=== PATIENT | male | born 1960 | race Caucasian/White ===

== ENCOUNTER 2019-07-20 11:09 | Emergency (ER) | payer BC ==
--- NOTE | 2019-07-20 11:43 | EKG REPORT ---
SEVERITY:- OTHERWISE NORMAL ECG - SINUS RHYTHM PVC : Confirmed by: Porter Sharp MD 20-Jul-2019 11:41:54
--- NOTE | 2019-07-20 12:21 | RADIOLOGY REPORT (SQ) ---
EXAM DESCRIPTION: CHEST SINGLE VIEW IMAGES COMPLETED DATE/TIME: 07/20/2019 12:10 pm REASON FOR STUDY: cp COMPARISON: None. EXAM PARAMETERS: NUMBER OF VIEWS: One view. TECHNIQUE: Single frontal radiographic view of the chest acquired. RADIATION DOSE: NA LIMITATIONS: None. FINDINGS: LUNGS AND PLEURA: No opacities, masses or pneumothorax. No pleural effusion. MEDIASTINUM AND HILAR STRUCTURES: No masses. Contour normal. HEART AND VASCULAR STRUCTURES: Heart normal in size. Normal vasculature. BONES: No acute findings. HARDWARE: None in the chest. OTHER: No other significant finding. IMPRESSION: NO ACUTE RADIOGRAPHIC FINDING IN THE CHEST. TECHNICAL DOCUMENTATION: JOB ID: [id number] 2010 [employer]- All Rights Reserved Reading location - IP/workstation name: [email or web address]
[2019-07-20 12:24] LABS: A TYPE INFLUENZA AG NEGATIVE (NEGATIVE); B INFLUENZA AG NEGATIVE (NEGATIVE)
--- NOTE | 2019-07-20 13:41 | ER Document Report ---
ED General - Related Data Home Medications: lisinopril <NORMA FLANNERY - Last Filed: 07/20/19 14:38> <ANTONY BLUE - Last Filed: 07/20/19 16:29> - General Chief Complaint: Shortness Of Breath Stated Complaint: SORE THROAT Time Seen by Provider: 07/20/19 11:32 - HPI Notes: Chief complaint: Sore throat, chest tightness, myalgias and altered sense of taste HPI: 59-year-old male treated by physician in [facility] for mild hypertension taking 20 mg of lisinopril daily presenting with 3 to 4-day history of symptoms as noted above. He denies known covert exposure. He has been doing some traveling within the [facility]. He has not previously been tested for COVID. Patient denies any known history of cardiac disease. He is a non-smoker. No history of hyperlipidemia. He is not diabetic. Family history is, however positive for CAD. (NORMA FLANNERY) - Related Data Allergies/Adverse Reactions: No Known Allergies Allergy (Unverified 07/20/19 11:51) Past Medical History - General Information source: Patient - Social History Smoking Status: Never Smoker Chew tobacco use (# tins/day): Yes Frequency of alcohol use: Social Drug Abuse: None Patient has homicidal ideation: No - Past Medical History Cardiac Medical History: Reports: Hx Hypertension <NORMA FLANNERY - Last Filed: 07/20/19 14:38> - Social History Family History: Reviewed & Not Pertinent <ANTONY BLUE - Last Filed: 07/20/19 16:29> Review of Systems <NORMA FLANNERY - Last Filed: 07/20/19 14:38> - Review of Systems Notes: Constitutional: General malaise. Negative for fever. HENT: As per HPI. Eyes: Negative for visual changes. Cardiovascular: As per HPI. Respiratory: Mild dyspnea on exertion. Gastrointestinal: Negative for abdominal pain, vomiting or diarrhea. Genitourinary: Negative for dysuria. Musculoskeletal: As per HPI. Skin: Negative for rash. Neurological: Negative for headaches, weakness or numbness. 10 point ROS negative except as marked above and in HPI. (NORMA FLANNERY) Physical Exam <NORMA FLANNERY - Last Filed: 07/20/19 14:38> - Vital signs Vitals: Temp Pulse Resp BP Pulse Ox 98.1 F 91 16 153/95 H 98 07/20/19 11:21 07/20/19 11:21 07/20/19 11:21 07/20/19 11:21 07/20/19 11:21 - Notes Notes: Remote Exam Using Telemedicine System GENERAL: Well-developed well-nourished appearing in no acute distress. SKIN: no rashes. HEAD: Normocephalic atraumatic. EYES: PERRL. EOMI. Conjunctivae and sclerae clear. NOSE: CLEAR. MOUTH: Moist mucosa. Good dentition. No stridor or edema. No drooling. NECK: Full ROM. No visible masses or thyromegaly. No JVD. BACK: Symmetrical. CHEST: Respirations unlabored. Expands symmetrical. ABDOMEN: Non-distended. GENITALIA: Deferred. EXTREMITIES: No edema. NEUROLOGICAL: GCS 15. Alert and oriented x3. Normal gait. Fluent speech. Cranial nerves II through XII intact. Motor and cerebellar normal. PSYCHIATRIC: Appropriate affect. (NORMA FLANNERY) Course - Laboratory Result Diagrams: 07/20/19 13:50 07/20/19 13:50 - Transfer of Care Care transferred to following provider: Dr. Blue <NORMA FLANNERY - Last Filed: 07/20/19 14:38> - Laboratory Result Diagrams: 07/20/19 13:50 07/20/19 13:50 - Diagnostic Test Radiology reviewed: Image reviewed, Reports reviewed <ANTONY BLUE - Last Filed: 07/20/19 16:29> - Re-evaluation Re-evalutation: 07/20/19 14:39 Current findings are most consistent with acute viral syndrome. Rapid strep test and influenza screens were negative. Chest x-ray shows no infiltrates. Normal oxygenation. EKG showed no acute changes. COVID screen has been req uested for this patient. Troponin is pending at this time and provided this is negative I think patient can be safely discharged home. (NORMA FLANNERY) 07/20/19 16:24 Patient showing no signs of distress at this time. 07/20/19 16:25 Patient has had a COVID-19 study done which will hopefully report back within the next 3 days. (ANTONY BLUE) - Vital Signs Vital signs: Temp Pulse Resp BP Pulse Ox 98.1 F 91 16 153/95 H 98 07/20/19 11:54 07/20/19 11:21 07/20/19 11:21 07/20/19 11:21 07/20/19 11:21 07/20/19 16:25 Vital signs are stable with a blood pressure 153/95 pulse ox 98% afebrile pulse 91 respiratory rate 16. (ANTONY BLUE) - Laboratory Laboratory results interpreted by me: 07/20/19 16:27 Troponin level was 0.012 showing no elevation. (ANTONY BLUE) - Diagnostic Test Radiology results interpreted by me: 07/20/19 16:25 Chest x-ray shows no acute process. (ANTONY BLUE) - EKG Interpretation by Me Additional EKG results interpreted by me: 07/20/19 13:40 Twelve-lead EKG from 1128 hrs. reviewed by me contemporaneously demonstrated heart rate of 85 with normal sinus rhythm. Indication for tracing was symptom of chest tightness. Single PVC is present on the tracing. Intervals are normal. No acute ST/T wave changes are present. There is no prior tracing for comparison. (NORMA FLANNERY) 07/20/19 16:26 Twelve-lead EKG shows normal sinus rhythm occasional PVCs no acute process. (ANTONY BLUE) Discharge <NORMA FLANNERY - Last Filed: 07/20/19 14:38> <ANTONY BLUE - Last Filed: 07/20/19 16:29> - Discharge Clinical Impression: Acute viral syndrome Condition: Stable Disposition: HOME, SELF-CARE Instructions: Viral Syndrome (REPLACED BY [facility]) Additional Instructions: Viral Syndrome The physician has diagnosed a viral infection. Viruses not only cause "colds," but can cause many different symptoms including generalized aching, fever, headache, cough, diarrhea, nausea, vomiting, and fatigue. The treatment, for the most part, is simply relief of symptoms. This means that antibiotics are usually not given. Rest, fluids, pain medications and, occasionally, medication for the specific symptoms that are most bothersome will be prescribed. Use good handwashing to avoid passing the virus to others. Shared toys should be cleaned with disinfectant. Clean the toilets, sinks, and counter surfaces in bathrooms. Launder clothing in hot water. Contact the physician if you develop any new or unusual symptoms such as severe headache, stiff neck, high fever, chest pain, productive cough, or shortness of breath. You should be rechecked if you don't see marked improvement within seven to 10 days. You were tested for COVID-19 today while in the department. That test results should be reported out in the next 3 days. Depending on the result you will get further instructions. Meanwhile you need to be quarantined for the next 14 days to be certain that you are not exposing yourself to other people.
[2019-07-20 14:22] LABS: ABSOLUTE LYMPHOCYTES (AUTO) 2.3 10^3/uL (0.5-4.7); ABSOLUTE MONOCYTES (AUTO) 0.5 10^3/uL (0.1-1.4); ABSOLUTE NEUT (AUTO) 3.9 10^3/uL (1.7-8.2); BASOPHILS % (AUTO) 0.2 % (0-2); EOSINOPHILS % (AUTO) 0.6 % (0-6); HEMATOCRIT 43.6 % (37.9-51.0); HEMOGLOBIN 15.4 g/dL (13.5-17.0); LYMPHOCYTES % (AUTO) 34.3 % (13-45); MEAN CORPUSCULAR HEMOGLOBIN 30.1 pg (27.0-33.4); MEAN CORPUSCULAR HGB CONC 35.4 g/dL (32.0-36.0); MEAN CORPUSCULAR VOLUME 85 fl (80-97); MONOCYTES % (AUTO) 7.2 % (3-13); PLATELET COUNT 193 10^3/uL (150-450); RED BLOOD COUNT 5.13 10^6/uL (4.35-5.55); RED CELL DISTRIBUTION WIDTH 13.6 % (11.5-14.0); SEGMENTED NEUTROPHILS % (AUTO) 57.7 % (42-78); TOTAL CELLS COUNTED % (AUTO) 100 %; WHITE BLOOD COUNT 6.8 10^3/uL (4.0-10.5)
[2019-07-20 14:44] LABS: ALBUMIN 4.3 g/dL (3.5-5.0); ALKALINE PHOSPHATASE 83 U/L (38-126); ANION GAP 8 (5-19); ASPARTATE AMINO TRANSFERASE 24 U/L (17-59); BILIRUBIN,TOTAL 0.6 mg/dL (0.2-1.3); BLOOD UREA NITROGEN 11 mg/dL (7-20); CALCIUM 9.2 mg/dL (8.4-10.2); CARBON DIOXIDE 28 mmol/L (22-30); CHLORIDE 102 mmol/L (98-107); GLUCOSE 87 mg/dL (75-110); POTASSIUM 4.3 mmol/L (3.6-5.0); TOTAL PROTEIN 7.5 g/dL (6.3-8.2)
[2019-07-20 16:38] VITALS: BP 148/83
== END 2019-07-20 16:56 | disposition home or self-care (01) ==
LOC: ER 11:09
DX: B34.9 Viral infection, unspecified (principal); R06.02 Shortness of breath; J02.9 Acute pharyngitis, unspecified; R07.9 Chest pain, unspecified; M79.10 Myalgia, unspecified site; R41.82 Altered mental status, unspecified; R53.81 Other malaise; R06.00 Dyspnea, unspecified; I10 Essential (primary) hypertension; Z79.899 Other long term (current) drug therapy; I25.10 Atherosclerotic heart disease of native coronary artery without angina pectoris; Z20.828 Contact with and (suspected) exposure to other viral communicable diseases
CPT/HCPCS: 93005; 99283; 36415; 87070; 87880; 85025; 87635; 80053; 84484; 87804; 71045; 93010; C9803

== ENCOUNTER 2019-11-09 07:55 | Emergency (ER) | payer BC ==
--- NOTE | 2019-11-09 11:26 | ER Document Report ---
ED Medical Screen (RME) - General Chief Complaint: Chest Pain Stated Complaint: CHEST PAIN Time Seen by Provider: 11/09/19 11:20 Mode of Arrival: Ambulatory Information source: Patient Notes: 59-year-old male presented to ED for chest pain that started last night. He states is been off and on since last night. He states was worse this morning. He states he does have some numbness and tingling down the left arm. He states is actually feeling the little better than he was earlier today but it is still having some numbness and tingling down the hand. He states he is not leaving until he checks that was going on. He states he does chew tobacco does not drink or use any drugs and does have a history of high blood pressure but does not think he has any history of cholesterol. He is alert oriented respirations regular nonlabored speaking in full sentences. I have greeted and performed a rapid initial assessment of this patient. A comprehensive ED assessment and evaluation of the patient, analysis of test results and completion of medical decision making process will be conducted by an additional ED providers. - Related Data Allergies/Adverse Reactions: No Known Allergies Allergy (Unverified 07/20/19 11:51) Home Medications: Lisinopril Past Medical History - Social History Chew tobacco use (# tins/day): Yes Drug Abuse: None - Past Medical History Cardiac Medical History: Reports: Hx Hypertension Physical Exam - Vital signs Vitals: Temp Pulse Resp BP Pulse Ox 98.5 F 106 H 18 164/93 H 98 11/09/19 08:20 11/09/19 08:20 11/09/19 08:20 11/09/19 08:20 11/09/19 08:20 Course - Vital Signs Vital signs: Temp Pulse Resp BP Pulse Ox 98.5 F 106 H 18 164/93 H 98 11/09/19 08:20 11/09/19 08:20 11/09/19 08:20 11/09/19 08:20 11/09/19 08:20
--- NOTE | 2019-11-09 11:56 | ER Document Report ---
ED General - General Chief Complaint: Chest Pain Stated Complaint: CHEST PAIN Time Seen by Provider: 11/09/19 11:20 Mode of Arrival: Ambulatory - HPI Notes: Chief complaint: Anxiety, chest tightness, concern about blood pressure History of present illness: 59-year-old male followed by primary care [facility] presenting for evaluation of anxiety, chest tightness and concerns about blood pressure. 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 He states he is under a great deal of stress at work at this time. Patient has been out of his lisinopril 20 mg which he usually takes for blood pressure for the past 2 weeks. He has been having some tachycardia/palpitations. Had some vague tightness in his chest last night with some radiation to left shoulder. This lasted for under 5 minutes. There was no associated shortness of breath, diaphoresis or nausea/vomiting. Patient notes that he had a negative treadmill test about 2-1/2 years ago in [facility]. Patient denies any known personal or family history of thromboembolic disease. History of hypertension as noted. Marginal hyperlipidemia. No diabetes. Non-smoker. Multiple family members with CAD. HEART Score: HISTORY 1 ECG 1 AGE 2 RISK FACTORS 2 TROPONIN 0 TOTAL: If HEART score is = 3 AND both tronponin measurments are normal, the 30 day risk of a major adverse cardiac event (all-cause mortality, myocardia infarction or need for coronary revscularization) is < 1% (Sensitivity 100%, NPV 100%). PERC SCORE H no hormone administration A Age>50 D DVT/PE previously C Coughing up blood L Leg swelling unilaterally O O2 sat <95% T Tachycardia S Surgery/Trauma recently - Related Data Allergies/Adverse Reactions: No Known Allergies Allergy (Unverified 07/20/19 11:51) Home Medications: Lisinopril Past Medical History - General Information source: Patient - Social History Smoking Status: Unknown if Ever Smoked Chew tobacco use (# tins/day): Yes Drug Abuse: None Family History: Reviewed & Not Pertinent - Past Medical History Cardiac Medical History: Reports: Hx Hypertension Denies: Hx Coronary Artery Disease, Hx DVT, Hx Pulmonary Embolism Past Surgical History: Reports: Hx Orthopedic Surgery Review of Systems - Review of Systems Notes: Constitutional: Negative for fever. HENT: Negative for sore throat. Eyes: Negative for visual changes. Cardiovascular: As per HPI. Respiratory: Negative for shortness of breath. Gastrointestinal: Negative for abdominal pain, vomiting or diarrhea. Genitourinary: Negative for dysuria. Musculoskeletal: Negative for back pain. Skin: Negative for rash. Neurological: Negative for headaches, weakness or numbness. 10 point ROS negative except as marked above and in HPI. Physical Exam - Vital signs Vitals: Temp Pulse Resp BP Pulse Ox 98.5 F 106 H 18 164/93 H 98 11/09/19 08:20 11/09/19 08:20 11/09/19 08:20 11/09/19 08:20 11/09/19 08:20 - Notes Notes: GENERAL: Well-developed well-nourished male approximately stated age appearing mildly anxious. SKIN: Slightly flushed. Good turgor no rashes. HEAD: Normocephalic atraumatic. EYES: PERRLA. EOMI. Conjunctivae and sclerae clear. EARS: CANALS AND TMS CLEAR. NOSE: CLEAR. MOUTH: Moist mucosa. Good dentition. No stridor or edema. No drooling. NECK: Supple. No masses or thyromegaly. No adenopathy. Carotids 2+ without bruits. No JVD. BACK: Symmetrical without tenderness. CHEST: Respirations unlabored. Breath sounds clear and symmetrical. HEART: Tachycardic. Regular rhythm. No murmur gallop or rub. ABDOMEN: Soft nontender without masses, organomegaly or rebound. Bowel sounds normally active. No bruits. GENITALIA: Deferred. EXTREMITIES: No edema. No calf tenderness. Cap refill less than 1.5 seconds. Dorsalis pedis and posterior tibial pulses 3+ and symmetrical. NEUROLOGICAL: GCS 15. Alert and oriented x3. Normal gait. Fluent speech. Cranial nerves II through XII intact. Sensorimotor and cerebellar normal. Normal tone. PSYCHIATRIC: Slightly anxious affect. Course - Re-evaluation Re-evalutation: 11/09/19 16:44 Patient is remained asymptomatic here. I gave him lisinopril 20 mg orally his blood pressure normalized. His EKG did not show any acute ST changes. His first troponin was normal. His 3-hour repeat troponin is pending at this time. I discussed case with the on-call talent development manager Dr. Anderson. He is going to arrange to see this man within the next 24 hours on outpatient basis for repeat treadmill testing. Even though his heart score is 4 we both feel comfortable with office follow-up because he has had a negative treadmill test within the last 2 to 3 years. This is all, of course, dependent upon the second troponin being normal. This will be reviewed prior to discharge. I will give the patient a work note for the next 3 days and write a prescription so he can get back on his lisinopril 20 mg daily. Also recommend 81 mg aspirin daily for prophylaxis. Findings, clinical impression and plan of treatment have been discussed with patient/family. Understanding of current findings and recommendations has been acknowledged by them and there is agreement regarding disposition and follow-up. - Vital Signs Vital signs: Temp Pulse Resp BP Pulse Ox 98.7 F 106 H 15 123/85 98 11/09/19 14:01 11/09/19 08:20 11/09/19 14:01 11/09/19 14:01 11/09/19 14:01 - Laboratory Result Diagrams: 11/09/19 11:40 11/09/19 11:40 Laboratory results interpreted by me: 11/09/19 11:40 Glucose 198 H - EKG Interpretation by Me Additional EKG results interpreted by me: 11/09/19 12:05 Twelve-lead EKG reviewed by me contemporaneously: 0803 hrs. Indication for study: Chest pain Rhythm: Sinus tachycardia Rate: 108 Intervals: Normal QRS axis: +[address]/T wave changes: None Comparison with prior tracing: None present Interpretation: Sinus tachycardia Discharge - Discharge Clinical Impression: Essential hypertension, Noncompliance Chest pain Qualifiers: Chest pain type: unspecified Qualified Code(s): R07.9 - Chest pain, unspecified Condition: Stable Disposition: HOME, SELF-CARE Prescriptions: Aspirin [Aspirin 81 mg Chewable Tablet] 81 mg PO DAILY #1 pkg Lisinopril 20 mg PO DAILY 30 Days #30 tablet Referrals: ASUNCION ANDERSON MD [ACTIVE STAFF] - Follow up as needed
[2019-11-09] MEDS ORDERED: LISINOPRIL 10 MG TABLET PO ONE (11:57)
[2019-11-09 12:05] LABS: ABSOLUTE MONOCYTES (AUTO) 0.6 10^3/uL (0.1-1.4); ABSOLUTE NEUT (AUTO) 3.9 10^3/uL (1.7-8.2); BASOPHILS % (AUTO) 0.4 % (0-2); EOSINOPHILS % (AUTO) 0.6 % (0-6); HEMATOCRIT 46.1 % (37.9-51.0); HEMOGLOBIN 16.1 g/dL (13.5-17.0); LYMPHOCYTES % (AUTO) 30.6 % (13-45); MEAN CORPUSCULAR HEMOGLOBIN 29.7 pg (27.0-33.4); MEAN CORPUSCULAR HGB CONC 34.8 g/dL (32.0-36.0); MEAN CORPUSCULAR VOLUME 85 fl (80-97); MONOCYTES % (AUTO) 8.6 % (3-13); PLATELET COUNT 178 10^3/uL (150-450); SEGMENTED NEUTROPHILS % (AUTO) 59.8 % (42-78); TOTAL CELLS COUNTED % (AUTO) 100 %; WHITE BLOOD COUNT 6.5 10^3/uL (4.0-10.5)
[2019-11-09 12:19] LABS: INTERNATIONAL RATION (INR) 1.02; PARTIAL THROMBOPLASTIN TIME 29.4 SEC (23.5-35.8); PROTHROMBIN TIME 13.6 SEC (11.4-15.4)
[2019-11-09 12:20] LABS: ALBUMIN 4.1 g/dL (3.5-5.0); ALKALINE PHOSPHATASE 94 U/L (38-126); ANION GAP 8 (5-19); ASPARTATE AMINO TRANSFERASE 22 U/L (17-59); BILIRUBIN,DIRECT 0.3 mg/dL (0.0-0.4); BILIRUBIN,TOTAL 0.7 mg/dL (0.2-1.3); BLOOD UREA NITROGEN 18 mg/dL (7-20); CALCIUM 9.2 mg/dL (8.4-10.2); CARBON DIOXIDE 26 mmol/L (22-30); CHLORIDE 104 mmol/L (98-107); CREATINE KINASE 59 U/L (55-170); GLUCOSE 198 mg/dL (75-110); POTASSIUM 4.1 mmol/L (3.6-5.0); TOTAL PROTEIN 7.3 g/dL (6.3-8.2)
[2019-11-09 12:32] LABS: D-DIMER < 0.27 ug/mL (0.00-0.50)
--- NOTE | 2019-11-09 12:37 | RADIOLOGY REPORT (SQ) ---
EXAM DESCRIPTION: CHEST SINGLE VIEW IMAGES COMPLETED DATE/TIME: 11/09/2019 12:05 pm REASON FOR STUDY: cp COMPARISON: 07/20/2019 EXAM PARAMETERS: NUMBER OF VIEWS: One view. TECHNIQUE: Single frontal radiographic view of the chest acquired. RADIATION DOSE: NA LIMITATIONS: None. FINDINGS: LUNGS AND PLEURA: No opacities, masses or pneumothorax. No pleural effusion. MEDIASTINUM AND HILAR STRUCTURES: No masses. Contour normal. HEART AND VASCULAR STRUCTURES: Heart normal in size. Normal vasculature. BONES: No acute findings. HARDWARE: None in the chest. OTHER: No other significant finding. IMPRESSION: NO ACUTE RADIOGRAPHIC FINDING IN THE CHEST. TECHNICAL DOCUMENTATION: JOB ID: [id number] 2010 [employer]- All Rights Reserved Reading location - IP/workstation name: [email or web address]
[2019-11-09 17:14] VITALS: BP 140/96
--- NOTE | 2019-11-09 18:24 | EKG REPORT ---
SEVERITY:- OTHERWISE NORMAL ECG - SINUS TACHYCARDIA : Confirmed by: Chelo Pham 09-Nov-2019 18:23:19
== END 2019-11-09 17:49 | disposition home or self-care (01) ==
LOC: ER 07:55
DX: I10 Essential (primary) hypertension (principal); R07.9 Chest pain, unspecified; F41.9 Anxiety disorder, unspecified; Z91.14 Patient's other noncompliance with medication regimen
CPT/HCPCS: 36415; 71045; 80053; 82550; 83735; 84443; 84484; 85025; 85379; 85610; 85730; 93005; 93010; 99285